=== PATIENT | female | born 1960 | race Caucasian/White ===

== ENCOUNTER 2019-11-16 18:35 | Emergency (ER) | payer OTHER ==
[~2019-11-16] VITALS: Ht 160 cm; Wt 83.9 kg
--- NOTE | 2019-11-16 18:38 | NUR ---
PT BIBRA FROM HOME TO ER BED 03 C/O DIFFUSE ABDOMINAL PAIN W/ N/V/D X 3 DAYS NOW. PT STATE HX OF DIVERTICULITIS BACK IN 2017. PT STATES PAIN WORST TO LUQ. PLACED ON MONITOR. VSS. AWAITING MD CARTER.
--- NOTE | 2019-11-16 18:41 | NUR ---
DR KYLE AT BEDSIDE FOR EVAL.
[2019-11-16] MEDS ORDERED: MORPHINE SULFATE INJ 4 MG/ML DISP.SYRIN ONE (18:46)
[2019-11-16] MEDS ORDERED: ONDANSETRON HCL/PF 4 MG/2 ML VIAL ONE (18:46)
--- NOTE | 2019-11-16 18:50 | NUR ---
IV LINE STARTED BLOOD DRAWN AND DSENT TO LAB.
[2019-11-16 18:58] LABS: BASOPHILS # (AUTO) 0.1 /CMM (0.0-0.2); BASOPHILS % (AUTO) 0.6 % (0.0-2.0); EOSINOPHILS % (AUTO) 0.5 % (0.0-6.0); HEMATOCRIT 51 % (33-45); HEMOGLOBIN 16.9 g/dL (11.5-14.8); LYMPHOCYTES # (AUTO) 3.5 /CMM (0.8-4.8); LYMPHOCYTES % (AUTO) 21.1 % (20.0-44.0); MEAN CORPUSCULAR HGB CONC 33 g/dl (31.0-36.0); MEAN CORPUSCULAR VOLUME 89 fL (82-100); MONOCYTES # (AUTO) 1.2 /CMM (0.1-1.30); MONOCYTES % (AUTO) 7.2 % (2.0-12.0); NEUTROPHILS # (AUTO) 11.9 /CMM (1.8-8.9); NEUTROPHILS % (AUTO) 70.6 % (43.0-81.0); PLATELET COUNT (AUTO) 388 /CMM (150-450); WHITE BLOOD COUNT (AUTO) 16.8 K/uL (4.3-11.0)
[2019-11-16] MEDS ORDERED: IV NS 0.9% 1,000 ML BAG IV ONE (19:00)
[2019-11-16] MEDS ORDERED: MORPHINE SULFATE INJ 2 MG/ML DISP.SYRIN IV ONE (19:00)
[2019-11-16] MEDS ORDERED: ONDANSETRON HCL/PF 4 MG/2 ML VIAL IVP ONE (19:00)
[2019-11-16 19:04] LABS: APPEARANCE,URINE Cloudy (CLEAR); BILIRUBIN,URINE MODERATE (NEGATIVE); BLOOD, URINE Trace-lysed Ery/uL (NEGATIVE); CALCIUM, SERUM 9.3 mg/dL (8.5-10.1); COLOR,URINE Yellow (YELLOW); CREATININE 1.1 mg/dL (0.6-1.3); KETONES,URINE 80 (NEGATIVE); LEUKOCYTE ESTERASE ,URINE Moderate (NEGATIVE); NITRITE, URINE Negative (NEGATIVE); PH,URINE 5.5 (5.0-8.0); POTASSIUM 4.5 mmol/L (3.5-5.1); PROTEIN,URINE Negative (NEGATIVE); UGLUCOSE Negative (NEGATIVE)
[2019-11-16 19:10] LABS: BILIRUBIN,DIRECT 0.1 mg/dL (0.0-0.2); BILIRUBIN,TOTAL 0.6 mg/dL (0.2-1.0); TOTAL PROTEIN, SERUM 7.9 g/dL (6.4-8.2)
--- NOTE | 2019-11-16 19:10 | NUR ---
REPORT TO SARA MOORE FOR EMILE.
--- NOTE | 2019-11-16 19:10 | NUR ---
PT RECEIVED IN BED AAOX4, NOT IN RESP DISTRESS. MADE AWARE THAT PT WILL TAKE THE ATIVAN FOR CT
[2019-11-16] MEDS ORDERED: LORAZEPAM INJ 2 MG/ML VIAL ONE (19:16)
[2019-11-16 19:21] LABS: BACTERIA,URINE 1+ /HPF (None Seen); SQUAMOUS EPITHELIAL CELL,UR Few /HPF (None Seen)
[2019-11-16] MEDS ORDERED: PIPERACILLIN /TAZOBACTAM 3.375 G VIAL IV ONE (19:24)
[2019-11-16] MEDS ORDERED: LORAZEPAM INJ 2 MG/ML VIAL IV ONE (19:30)
[2019-11-16] MEDS ORDERED: PIPERACILLIN /TAZOBACTAM 3.375 G in IV D5W 50 ML IV ONE (19:30)
--- NOTE | 2019-11-16 19:46 | NUR ---
PT BACK FROM CT. ACCOMPANIED BY RN D/T PT IS CLAUSTRPHOBIC
[2019-11-16 21:12] VITALS: BP 125/77
--- NOTE | 2019-11-16 21:14 | NUR ---
Patient discharged to home in stable condition. Written and verbal after care instructions given. Patient verbalizes understanding of instruction.IV removed. Catheter intact and site benign. Pressure and 4x4 applied to site. No bleeding noted. Pt ambulatory with a steady gait
== END 2019-11-16 21:22 | disposition home or self-care (01) ==
LOC: ER 18:40
DX: A09 Infectious gastroenteritis and colitis, unspecified (principal); N39.0 Urinary tract infection, site not specified; E86.0 Dehydration; Z88.6 Allergy status to analgesic agent; Z88.5 Allergy status to narcotic agent
CPT/HCPCS: 36415; 71045; 74176; 80048; 80076; 81001; 83690; 85025; 87086; 96361; 96365; 96375; 99285; J2060; J2270; J2405; J2543 ×2; J7030; J7060; 81000-TC; 87186-TC